=== PATIENT | male | born 1985 | race Caucasian/White ===

== ENCOUNTER 2019-05-03 16:53 | Inpatient (IN) ==
[~2019-05-03 16:53] MED LIST: ATARAX PO PRN; BENTYL PO PRN; D5W 1,000 ML IV PRN; DESYREL PO PRN; DULCOLAX PR PRN; IMODIUM PO PRN; LIBRIUM PO PRN; MAALOX PLUS LIQUID PO PRN; PHENOBARBITAL IV PRN; ROBAXIN PO PRN; SENOKOT PO PRN; SEROQUEL PO PRN; SINEMET 25/100 PO PRN; TUBERSOL ID ONE; TYLENOL PO PRN; ZOFRAN IV PRN; ZOFRAN ODT PO PRN
[2019-05-03 17:22] LABS: HEMOGLOBIN 15.8 g/dL (14.0-18.0); MCH 31.5 PG (27-31); MCHC 34.3 g/dL (33-37); MCV 91.6 FL (81-99); MPV 10.2 FL (7.4-10.4); RBC 5.02 XMIL (4.7-6.1); RDW 13.3 % (11.5-14.5); WBC 12.62 X1000 (4.8-10.8)
[2019-05-03 17:43] LABS: AMYLASE 48 U/L (20-200); LIPASE 26 U/L (13-60)
[2019-05-03 17:45] LABS: AGAP 13; ALBUMIN 4.8 g/dL (3.5-5.0); ALKALINE PHOSPHATASE 125 U/L (32-122); BUN 15 mg/dL (8-22); CALCIUM 9.5 mg/dL (8.8-10.2); CHLORIDE 102 mmol/L (98-107); COSMO 286; CREATININE 0.7 mg/dL (0.7-1.2); ESTIMATED GFR > 60; GLUCOSE 100 mg/dL (70-104); GOT 20 U/L (10-34); GPT 18 U/L (10-44); POTASSIUM 4.2 mmol/L (3.5-5.1); SODIUM 143 mmol/L (136-145); TCO2 28 mmol/L (25-35); TOTAL PROTEIN 8.5 g/dL (6.3-8.3)
[2019-05-03 17:50] LABS: INR 0.97; PROTIME 13.4 Seconds (11.0-16.0)
[2019-05-03] MEDS: MOTRIN PO PRN (18:05)
[2019-05-03] MEDS: NICODERM PATCH TD PRN (18:43)
[2019-05-03 19:04] LABS: URINE SOURCE VOIDED
[2019-05-03 19:13] LABS: UR AMPHETAMINES QUAL PRESUMPTIVE POSITIVE (NONE DETECT); UR BARBITUATES QUAL NONE DETECTED (NONE DETECT); UR BENZODIAZEPIN QUAL NONE DETECTED (NONE DETECT); UR CANNABINOIDS QUAL PRESUMPTIVE POSITIVE (NONE DETECT); UR COCAINE QUAL NONE DETECTED (NONE DETECT); UR METHADONE QUAL NONE DETECTED (NONE DETECT); UR METHAMPHETAMINE QUAL NONE DETECTED (NONE DETECT); UR OPIATES QUAL NONE DETECTED (NONE DETECT); UR OXYCODONE QUAL NONE DETECTED (NONE DETECT); UR PCP QUAL NONE DETECTED (NONE DETECT); UR PROPOXYPHENE QUAL NONE DETECTED (NONE DETECT); UR TCA QUAL NONE DETECTED (NONE DETECT)
[2019-05-03 19:27] LABS: BILIRUBIN URINE NEGATIVE (NEGATIVE); BLOOD URINE NEGATIVE (NEGATIVE); COLOR YELLOW; GLUCOSE URINE NEGATIVE (NEGATIVE); KETONE URINE TRACE mg/dL (NEGATIVE); LEUKOCYTES URINE TRACE (NEGATIVE); NITRITE URINE NEGATIVE (NEGATIVE); PH URINE 6.5; PROTEIN URINE TRACE mg/dL (NEGATIVE); UROBILINOGEN URINE NORMAL
[2019-05-03 19:29] LABS: CLARITY CLEAR (CLEAR)
[2019-05-03 19:30] LABS: URINE RBC <10 /HPF (<10); URINE WBC <10 /HPF (<10)
[2019-05-03 19:31] LABS: URINE BACTERIA 1+ /HFP; URINE CAST NONE SEEN /LPF; URINE CRYSTAL CA OXALATE PRESENT /HPF; URINE EPITHELIAL CELLS <10 /HPF (<10); URINE YEAST NONE SEEN /HPF
[2019-05-03] MEDS: SUBOXONE 2 MG/0.5 MG FILM SL SCH (19:44)
[2019-05-04] MEDS: PROTONIX PO SCH (06:38)
[2019-05-04] MEDS ORDERED: ATARAX PO PRN (06:47)
[2019-05-04] MEDS: FOLIC ACID PO SCH (08:15)
[2019-05-04] MEDS: THERA M PLUS PO SCH (08:15)
[2019-05-04] MEDS: VITAMIN B-1 PO SCH (08:15)
[2019-05-04] MEDS: SUBOXONE 2 MG/0.5 MG FILM SL SCH (08:15)
[2019-05-04] MEDS ORDERED: NICOTINE GUM BUCCAL PRN (14:40)
[2019-05-04] MEDS ORDERED: SUBOXONE 2 MG/0.5 MG FILM SL ONE (14:42)
[2019-05-04] MEDS: SUBOXONE 8 MG/2 MG FILM SL SCH ×2 (14:44→21:37)
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
--- NOTE | 2019-05-04 17:54 | PROGRESS NOTE ---
DATE: 05/04/2019 SUBJECTIVE: Patient notes he still feels terrible. He is having lots of muscle aches and sweating. Feels as though he needs to increase Suboxone. Notes that he was on 1 and /2 strip at home. OBJECTIVE: Vital signs: Temperature 97.8, pulse 84, respiratory 18, BP 127/92. General: Patient is awake, currently in no distress. HEENT: Normocephalic. Neck: Supple. Cardiovascular: Regular rate. Chest: Clear. Abdomen: Soft. Extremities: Moves all extremities. Neurologic: No focal changes. ASSESSMENT: 1. Nausea and vomiting. 2. Abdominal pain. 3. Myalgias. 4. Paresthesias. 5. Paroxysmal sweating. 6. Opiate abuse, withdrawal, and stabilization. PLAN: Will increase Suboxone to alleviated his symptoms and then we will attempt to wean down if possible. Continue counseling. Further orders as needed. cc: Pito Castle MD
[2019-05-04] MEDS: NICODERM PATCH TD PRN (21:46)
[2019-05-05] MEDS: PROTONIX PO SCH (06:08)
[2019-05-05] MEDS: THERA M PLUS PO SCH (09:24)
[2019-05-05] MEDS: VITAMIN B-1 PO SCH (09:24)
[2019-05-05] MEDS: FOLIC ACID PO SCH (09:24)
[2019-05-05] MEDS: SUBOXONE 2 MG/0.5 MG FILM SL SCH (09:25)
--- NOTE | 2019-05-05 21:26 | PROGRESS NOTE ---
DATE: 05/05/2019 SUBJECTIVE: The patient notes that he feels tremendously better after having additional dose of Suboxone last night. Notes that he was out of it going home off of everything, but realizes that they would not be successful doing that. Notes his muscle aches, myalgias, nausea all improved with the increased dose of Suboxone last night. PHYSICAL EXAMINATION: Vital Signs: Reviewed. General: Patient is awake, alert. He is in no respiratory distress. Pleasant. HEENT: Normocephalic. Neck: Supple. Cardiovascular: Regular rate. Chest: Clear. Abdomen: Soft. Extremities: Moves all extremities. Neurologic: No changes. ASSESSMENT: 1. Nausea and vomiting. 2. Abdominal pain. 3. Myalgias. 4. Paresthesias. 5. Paroxysmal sweating. 6. Opiate abuse, withdrawal and stabilization. PLAN: Continue patient in the hospital. Continue counseling. We will attempt to try 4 mg this morning and 8 tonight. If he is successful, hopefully, he can discharge home. cc: Pito Castle MD
[2019-05-05] MEDS: SUBOXONE 8 MG/2 MG FILM SL SCH (21:36)
[2019-05-06] MEDS: PROTONIX PO SCH (06:24)
[2019-05-06] MEDS: THERA M PLUS PO SCH (09:33)
[2019-05-06] MEDS: MOTRIN PO PRN (09:33)
[2019-05-06] MEDS: FOLIC ACID PO SCH (09:33)
[2019-05-06] MEDS: SUBOXONE 2 MG/0.5 MG FILM SL SCH (09:33)
[2019-05-06] MEDS: VITAMIN B-1 PO SCH (09:33)
[2019-05-06] MEDS: SUBOXONE 8 MG/2 MG FILM SL SCH (21:53)
[2019-05-07] MEDS: MOTRIN PO PRN (03:18)
[2019-05-07] MEDS: PROTONIX PO SCH (06:22)
--- NOTE | 2019-05-07 07:43 | PROGRESS NOTE ---
DATE: 05/07/2019 SUBJECTIVE: The patient notes he is feeling a lot better with the increase in Suboxone. He still does not feel quite back to normal. PHYSICAL EXAMINATION: General: The patient is awake and alert. He is in no respiratory distress. HEENT: Normocephalic. Neck: Supple. Cardiovascular: Regular rate. Chest: Clear. Abdomen: Soft. Extremities: Moves all extremities. Neurologic: No changes. ASSESSMENT: 1. Nausea and vomiting. 2. Abdominal pain. 3. Myalgias. 4. Paresthesias. 5. Paroxysmal sweating. 6. Opiate abuse withdrawal and stabilization. PLAN: We will continue the patient in the hospital. Continue Suboxone. Discussed with patient to weaning versus staying off His preference is staying Suboxone, but does not think he will be successful off of it. cc: Pito Castle MD MTDD
[2019-05-07] MEDS: VITAMIN B-1 PO SCH (08:36)
[2019-05-07] MEDS: FOLIC ACID PO SCH (08:36)
[2019-05-07] MEDS: SUBOXONE 2 MG/0.5 MG FILM SL SCH (08:36)
[2019-05-07] MEDS: THERA M PLUS PO SCH (08:36)
[2019-05-07 15:35] VITALS: BP 124/79
--- NOTE | 2019-05-17 18:46 | DISCHARGE SUMMARY ---
ADMISSION DATE: 05/03/2019 DISCHARGE DATE: 05/07/2019 DISCHARGE DIAGNOSES: 1. Nausea and vomiting. 2. Abdominal pain. 3. Myalgias. 4. Paresthesias. 5. Paroxysmal sweating. 6. Opiate abuse, withdrawal and stabilization. CONSULTATIONS: None. PROCEDURES: None. BRIEF HOSPITAL COURSE: The patient is a male who presented to the hospital with abdominal pain, nausea, vomiting, and tremors. Notes that he has been having financial and work-related problems secondary to drug use. We admitted him, place him on Suboxone. Counseled him each day. Thankfully, on discharge he is awake and alert. He is in no distress. cc: Pito Castle MD
== END 2019-05-07 17:24 | disposition home or self-care (01) | DRG 897 ==
LOC: P.MEDSURG 16:53
PROVIDERS: ADMIT Family Medicine; ATTEND Family Medicine